=== PATIENT | female | born 1975 | race Caucasian/White ===

== ENCOUNTER 2021-10-19 10:36 | Day surgery (SDC) | payer OTHER ==
[~2021-10-19] VITALS: Ht 162.6 cm; Wt 68.0 kg
[~2021-10-19 10:36] MED LIST: BUPR150T15 PO; BUSP15TA PO; HYDROmorphone 2 MG/ML INJ. IVP PRN; IV RINGERS,LACTATED 1000ML 1,000 ML IV SCH; MORPHINE SULFATE 2 MG/ML INJ. IVP PRN; MULT1CAP33 PO; PROCHLORPERAZINE 10 MG/2 ML VIAL. IVP PRN; SERT100T PO; fentaNYL PF VIAL 100 MCG/2 ML VIAL IVP PRN
[2021-10-19 10:54] VITALS: BP 122/57
[2021-10-19] MEDS ORDERED: PROPOFOL 10 MG/ML (20ML) VIAL. IV ONE (11:02)
[2021-10-19] MEDS ORDERED: ONDANSETRON PF 4 MG/2 ML VIAL. ONE (11:03)
[2021-10-19] MEDS ORDERED: DEXAMETHASONE SOD PHOS 4 MG/ML VIAL ONE (11:03)
[2021-10-19] MEDS ORDERED: LIDOCAINE 1% PF 5 ML VIAL. ONE (11:03)
[2021-10-19] MEDS ORDERED: fentaNYL PF VIAL 100 MCG/2 ML VIAL ONE (11:03)
[2021-10-19] MEDS ORDERED: BUPIVACAINE MPF 0.25% 30 ML VIAL. ONE (12:15)
[2021-10-19] MEDS ORDERED: GLYCOPYRROLATE 1 MG/5 ML VIAL. ONE (12:57)
[2021-10-19] MEDS ORDERED: ePHEDrine PF IN SALINE 50 MG/10 ML SYRINGE. IV ONE (14:40)
--- NOTE | 2021-10-19 15:03 | PDOC4 ---
OPERATIVE NOTE Date: Date: Oct 19, 2021 Pre-Op Diagnosis: Left bunion deformity Post-Op Diagnosis: Same as above Procedure Performed: Minimal invasive distal bunionectomy/ osteotomy with an Eduar osteotomy, L Surgeon: Ronald Boucher DPM Anesthesia Type: General Blood Loss: 5 cc Specimans Obtained: None Findings: Preoperatively, there was increased intermetatarsal angle, hallux abductus angle. Patient was clinically bothered and concerned with the medial eminence at the first metatarsal head as opposed to first MTPJ circumferentially. Complications: None Operative Note: Under mild sedation, patient was brought into the operating room and placed on the operative table in a supine position. A formal timeout was performed to confirm patient's identity, procedure and procedure site. Following IV antibiotics and general anesthesia, a well-padded left thigh tourniquet was applied. 10 cc of 0.25% Marcaine plain was infiltrated into the provisional surgical site and a Parker block fashion. The left lower extremity was then prepped, scrubbed and draped using aseptic techniques. The tourniquet was inflated to 180 mmHg. Using intraoperative x-ray, a provisional osteotomy approximately 5 mm proximal to the sesamoids, aiming perpendicular to the second metatarsal shaft was marked. The central axial position of the first metatarsal and first TMT and first MTPJ were marked on lateral view. Then a 5 mm stab incision was made at the provisional osteotomy site on the lateral first metatarsal neck. The incision was carried deep to the periosteum layer with blunt dissection with care to protect the neurovascular bundles. Before osteotomy, the tourniquet was deflated. Then a 2 x 19.5 mm straight MIS bur was used to complete the osteotomy at the level of the first metatarsal neck aiming perpendicular to the second metatarsal shaft using intraoperative x-ray guidance. After the capital fragment was freed and mobilized, a jig was used to laterally translate the capital fragment to reduce the first metatarsal angle to under 8 degrees. Then using standard AO techniques, one 4.0 mm and one 3.5 fully threaded screws were placed from the medial proximal first metatarsal shaft to the capital fragment with goals to capture bicortical at the proximal first metatarsal shaft. Care was taken to protect the soft tissue neurovascular bundles at the medial surface of the first metatarsal near the screw placement sites. Intraoperative x-ray noted adequate hardware position, length without violating the first MTPJ. On the lateral view, the hardware was central to the first metatarsal shaft. At this time, intraoperative exam remarked slight overlap between the hallux and second digit and then the decision was made to perform an Eduar osteotomy. Then a 5 mm stab incision was made at the medial surface of the proximal hallux. The incision was carried deep using blunt dissection to the periosteum layer. Then a 2.0 x 13 mm straight bur was used to complete the osteotomy aiming towards the lateral base of proximal hallux while preserving the lateral hinge. A small medially based wedge was removed and easy osteotomy apposition and reduction of the deformity was noted with 2 finger manipulation technique. Then using standard AO technique, a 3.5 millimeter screw was used to affix the osteotomy site. Intraoperative x-ray noted adequate hardware placement, position, reduction of the DASA deformity. All the surgical sites were irrigated with copious saline solution. The surgical sites were closed with 4-0 Monocryl and 4-0 nylon. 15 cc of 0.25% Marcaine plain was used to augment postoperative anesthesia to the first ray. At the surgical sites were dressed with Xeroform, 4 x 4, Kerlix, ABD and Red bandage. Adequate digital perfusion was noted after surgery. Patient tolerated the procedure and anesthesia well with vital signs stable and neurovascular status intact. Patient was then transferred to PACU for continuous recovery. Pending surgical foot x-ray 3 view. Patient to be nonweightbearing in the E boot for 2 weeks. RONALD BOUCHER DPM Oct 19, 2021 15:03
[2021-10-19] MEDS ORDERED: ACETAMINOPHEN 325 MG TABLET. PO ONE (15:15)
[2021-10-19] MEDS ORDERED: GABAPENTIN 100 MG CAPSULE. PO ONE (15:15)
[2021-10-19] MEDS ORDERED: oxyCODONE/APAP 5/325 1 TAB TABLET PO ONE (15:15)
[2021-10-19] MEDS ORDERED: GABA-585 PO (15:27)
[2021-10-19] MEDS ORDERED: HYDR-2761 PO (15:27)
[2021-10-19] MEDS ORDERED: ACET500T68 PO (15:28)
[2021-10-19] MEDS ORDERED: IBUP-1007 PO (15:28)
[2021-10-19] MEDS ORDERED: ASPI-630 PO (15:29)
[2021-10-19 15:45] VITALS: BP 100/54
== END 2021-10-19 16:40 | disposition home or self-care (01) ==
LOC: SURG 10:36
PROVIDERS: ATTEND Podiatrist
DX: M21.612 Bunion of left foot (principal); F41.9 Anxiety disorder, unspecified; F32.9 Major depressive disorder, single episode, unspecified; Z98.51 Tubal ligation status; Z90.710 Acquired absence of both cervix and uterus; Z98.890 Other specified postprocedural states; Z79.899 Other long term (current) drug therapy; Z79.82 Long term (current) use of aspirin; Z87.891 Personal history of nicotine dependence
CPT/HCPCS: 28295; 28298; A4930; A6223; A6253; A6402; A6449; A6450; C1713; C1769; J0690; J1100; J2405; J2704; J3010; J3490; A4657; A6454